=== PATIENT | female | born 1950 | race Two or more races ===

== ENCOUNTER → 2016-09-07 | Outpatient (CLI) | payer MEDICAID ==
[2016-09-07 09:48] LABS: BASO % 0.5 % (0.0-1.0); EOS # 0.5 K/mm3 (0.0-0.50); EOS % 9.1 % (0.0-3.0); LARGE UNSTAINED CELL # 0.2 K/mm3 (0.0-0.4); LARGE UNSTAINED CELL % 3.8 % (0.0-4.0); LYMPH # 1.9 K/mm3 (1.5-4.5); LYMPH % 36.4 % (24.0-44.0); MEAN CORPUSCULAR HEMOGLOBIN 27.7 pg (27.0-33.0); MEAN CORPUSCULAR HGB CONC 33.4 g/dl (32.0-36.5); MEAN CORPUSCULAR VOLUME 82.8 fl (80.0-96.0); MONO # 0.3 K/mm3 (0.0-0.8); NEUTROPHILS # 2.3 K/mm3 (1.8-7.7); NEUTROPHILS % 44.2 % (36.0-66.0); PLATELET COUNT, AUTOMATED 211 k/mm3 (150-450); RED CELL DISTRIBUTION WIDTH 13.4 % (11.5-14.5); WHITE BLOOD COUNT 5.1 K/mm3 (4.0-10.0)
[2016-09-07 10:26] LABS: ALBUMIN 3.6 GM/DL (3.2-5.2); ALBUMIN/GLOBULIN RATIO 1.09 (1.00-1.93); ALKALINE PHOSPHATASE 88 U/L (45-117); ALT/SGPT 18 U/L (12-78); ANION GAP 10 MEQ/L (8-16); AST/SGOT 16 U/L (15-37); BILIRUBIN,TOTAL 0.3 MG/DL (0.2-1.0); BLOOD UREA NITROGEN 15 MG/DL (7-18); CARBON DIOXIDE LEVEL 29 MEQ/L (21-32); CHLORIDE LEVEL 105 MEQ/L (98-107); CHOLESTEROL LEVEL 261 MG/DL (<200); CREATININE FOR GFR 0.87 MG/DL (0.55-1.02); GLOMERULAR FILTRATION RATE > 60.0 (>45); GLUCOSE, FASTING 122 MG/DL (80-110); POTASSIUM SERUM 4.1 MEQ/L (3.5-5.1); SODIUM LEVEL 144 MEQ/L (136-145); TOTAL PROTEIN 6.9 GM/DL (6.4-8.2); TRIGLYCERIDES LEVEL 265 MG/DL (<150)
== END ==
LOC: M LAB 09:13
PROVIDERS: ATTEND Family Medicine Addiction Medicine
DX: I10 Essential (primary) hypertension (principal)

== ENCOUNTER → 2016-09-22 | Outpatient (CLI) | payer MEDICAID ==
--- NOTE | 2016-09-22 10:06 | REP ---
Clinical: Right upper quadrant and generalized abdominal pain. Technique: Tabares scale ultrasound using curved array transducer. Findings: The liver is normal in contour, size, echogenicity without focal hepatic lesion identified. The pancreas is mildly echogenic with a prominent duct measuring up to 3.4 mm diameter. The pancreas is otherwise incompletely evaluated due to interposed bowel gas. The gallbladder demonstrates cholelithiasis without wall thickening or pericholecystic fluid and no biliary ductal dilatation. The common bile duct measures 5.5 mm diameter. No sonographic Trinh's sign was elicited during examination. The right kidney is normal in reniform shape without hydronephrosis and measures 9.7 x 4.4 x 4.2 cm. No ascites. Impression: 1. Cholelithiasis without sonographic evidence for acute cholecystitis. 2. Mildly prominent visualized pancreas and pancreatic duct without obvious abnormality. Signed by Attila Gunter MD 09/22/2016 09:58 A
== END ==
LOC: M RAD 08:26
PROVIDERS: ATTEND Family Medicine Addiction Medicine
DX: K80.80 Other cholelithiasis without obstruction (principal)

== ENCOUNTER → 2016-10-11 | Outpatient (CLI) | payer MEDICAID ==
--- NOTE | 2016-10-11 14:12 | REPMRS ---
Patient History The patient states she has not had a clinical breast exam in over a year. Patient is postmenopausal. No known family history of cancer. Digital Woman Screen Mammo: October 11, 2016 - Exam #: [id number] Bilateral CC and MLO view(s) were taken. Technologist: Ale Quinonesologist FINDINGS: There are scattered fibroglandular densities. There is no evidence of cancer on this mammogram. ASSESSMENT: BI-RADS/ACR category 2 mammogram. Benign finding(s). Recommendation Routine screening mammogram of both breasts in 1 year (for women over age 40). This mammogram was interpreted with the aid of an FDA-approved computer-aided dectection system. Electronically Signed By: Mauricio Tabares MD 10/11/16 [id number]
--- NOTE | 2016-10-11 15:12 | REP ---
PELVIC ULTRASOUND: Real-time sonographic evaluation of the pelvis is performed utilizing transabdominal and endovaginal technique. Bladder measures 5.6 x 9.6 x 4.6 cm. The patient has had a prior hysterectomy and oophorectomy approximately 10 years ago. No mass or cyst is seen. No free fluid is seen. IMPRESSION: Negative pelvic ultrasound, status post hysterectomy and oophorectomy. Signed by Mauricio Tabares MD 10/11/2016 04:27 P
== END ==
LOC: M WHC 13:04
PROVIDERS: ATTEND Advanced Practice Midwife
DX: Z12.31 Encounter for screening mammogram for malignant neoplasm of breast (principal); Z78.0 Asymptomatic menopausal state; R10.30 Lower abdominal pain, unspecified

== ENCOUNTER 2016-11-08 17:57 | Emergency (ER) | payer MEDICAID ==
[~2016-11-08] VITALS: Ht 157.5 cm; Wt 72.6 kg
[2016-11-08 17:57] VITALS: BP 131/64
[~2016-11-08 17:57] MED LIST changes: -BUPIVACAINE/EPIN 0.25% 30 ML VIAL As Ordered ONE; -GLYCOPYRROLATE INJ 0.2 MG/ML 2 ML VIAL As Ordered ONE; -HYDROmorphone HCL 1 MG/ML SYRINGE (J1170) IV PRN; -KETOROLAC 30 MG/ML VIAL (J1885) IV PRN; -LABETALOL HCL 100 MG/20 ML VIAL As Ordered ONE; -LIDOCAINE 2% INJ 100 MG/5 ML SDV (FOR ANES.) As Ordered ONE; -LR 1,000 ML IV ONE; -LR 1,000 ML IV SCH; -MEPERIDINE INJ 25 MG/ML VIAL (J2175) IV PRN; -MIDAZOLAM INJ 2 MG/2 ML VIAL (J2250) As Ordered ONE; -NEOSTIGMINE 1MG/ML 5 ML SYRINGE (J2710) As Ordered ONE; -NORCO, ANEXSIA 5/325MG TABLET (HYDROcodone/ACETAMINOPHEN) PO PRN; -ONDANSETRON 4MG/2ML VIAL (J2405) As Ordered ONE; -ONDANSETRON 4MG/2ML VIAL (J2405) IV PRN; -PERCOCET 5MG/325MG TAB PO PRN; -PROPOFOL 200 MG/20 ML VIAL As Ordered ONE; -ROCURONIUM BROMIDE 50 MG/5 ML VIAL As Ordered ONE; -SUGAMMADEX SODIUM 500 MG/5 ML VIAL (BRIDION) As Ordered ONE; -dexameTHASONE 4 MG/ML 1ML VIAL (J1100) As Ordered ONE; -fentaNYL 100 MCG/2 ML INJECTION (J3010) IV PRN; -fentaNYL 250 MCG/5 ML INJECTION (J3010) As Ordered ONE
== END 2016-11-08 19:45 | disposition home or self-care (01) ==
LOC: M ED 18:48
DX: Z48.00 Encounter for change or removal of nonsurgical wound dressing (principal); Z90.49 Acquired absence of other specified parts of digestive tract; I10 Essential (primary) hypertension; Z79.899 Other long term (current) drug therapy

== ENCOUNTER → 2016-11-08 | Day surgery (SDC) | payer MEDICAID ==
[~2016-11-08] VITALS: Ht 160 cm; Wt 72.6 kg
[~2016-11-08] MED LIST: BUPIVACAINE/EPIN 0.25% 30 ML VIAL As Ordered ONE; GLYCOPYRROLATE INJ 0.2 MG/ML 2 ML VIAL As Ordered ONE; HYDROmorphone HCL 1 MG/ML SYRINGE (J1170) IV PRN; KETOROLAC 30 MG/ML VIAL (J1885) IV PRN; LABETALOL HCL 100 MG/20 ML VIAL As Ordered ONE; LIDOCAINE 2% INJ 100 MG/5 ML SDV (FOR ANES.) As Ordered ONE; LISI20TA3 PO; LR 1,000 ML IV ONE; LR 1,000 ML IV SCH; MEPERIDINE INJ 25 MG/ML VIAL (J2175) IV PRN; MIDAZOLAM INJ 2 MG/2 ML VIAL (J2250) As Ordered ONE; NEOSTIGMINE 1MG/ML 5 ML SYRINGE (J2710) As Ordered ONE; NORCO, ANEXSIA 5/325MG TABLET (HYDROcodone/ACETAMINOPHEN) PO PRN; OMEP20CA3 PO; ONDANSETRON 4MG/2ML VIAL (J2405) As Ordered ONE; ONDANSETRON 4MG/2ML VIAL (J2405) IV PRN; PERCOCET 5MG/325MG TAB PO PRN; PROPOFOL 200 MG/20 ML VIAL As Ordered ONE; ROCURONIUM BROMIDE 50 MG/5 ML VIAL As Ordered ONE; SUGAMMADEX SODIUM 500 MG/5 ML VIAL (BRIDION) As Ordered ONE; dexameTHASONE 4 MG/ML 1ML VIAL (J1100) As Ordered ONE; fentaNYL 100 MCG/2 ML INJECTION (J3010) IV PRN; fentaNYL 250 MCG/5 ML INJECTION (J3010) As Ordered ONE
[2016-11-08 14:00] VITALS: BP 108/55
--- NOTE | 2016-11-09 12:34 | RO ---
DATE OF PROCEDURE: 11/08/2016 PREOPERATIVE DIAGNOSIS: Symptomatic cholelithiasis. POSTOPERATIVE DIAGNOSIS: Symptomatic cholelithiasis. PROCEDURE: Laparoscopic cholecystectomy. SURGEON: Dr. Quijano ROLLED GOLD PLATER: Dr. Valentin ANESTHESIA: General with 10 mL of 1% lidocaine local. COMPLICATIONS: None. INDICATIONS FOR PROCEDURE: The patient is a 65-year-old female who presents with persistent right upper quadrant abdominal pain, found to have stones on ultrasound. Recommendation to proceed with laparoscopic, possible open cholecystectomy. Risks and benefits of the procedure not limited but including bleeding, infection, hernia formation, damage surrounding structure, need for further surgery were discussed in detail with the patient. Informed was obtained. Procedure was planned. DESCRIPTION OF PROCEDURE: Patient brought back to operating room #3. After sufficient sedation, the abdomen was sterilely prepped and draped. Next, a time-out was done to confirm proper patient, proper procedure. Following that, a stab incision made in left lower quadrant, Heath's point. Veress needle was inserted and the abdomen was insufflated 50 mmHg. Next, a 5 mm incision was made infraumbilically. A 5 mm Optiview port was used to gain access to the abdomen. Once the abdomen was entered, Veress needle site was examined. There were no signs of injury. Veress needle was then removed. A 10 mm port was placed subxiphoid. Two 5 mm ports in the right upper quadrant. Fundus of gallbladder was grasped, elevated up towards right shoulder. Cystic duct and cystic artery were carefully dissected free using blunt dissection. Once they were completely free and easily identified, they were both doubly clipped and cut. Gallbladder was then removed from gallbladder fossa using electrocautery. The electrocautery was then used to control hemostasis at the liver bed. Once this was completed, the gallbladder was removed in a 10 mm EndoCatch bag from the xiphoid port site. Abdomen was then desufflated. Skin incisions were closed #4-0 Vicryl subcuticular sutures. The abdomen was clean and dry. Steri-Strips, 4 x 4 and tape were applied, thus ending procedure.
--- NOTE | 2016-11-09 19:52 | ECGEPIP ---
Stationary ECG Study [facility] Test Date: 2016-11-08 Pat Name: BARBER SOFIA Department: Room: - Gender: F Regional Driver: LEO : [id number] Requested By: KATHY Bullock Order Number: [id number] Reading MD: Charity Castillo Measurements Intervals [place] Rate: 66 P: 25 WA: 174 QRS: -31 QRSD: 92 T: 1 QT: 423 QTc: 444 Interpretive Statements SINUS RHYTHM MARKED LEFT AXIS DEVIATION MODERATE VOLTAGE CRITERIA FOR LVH, CONSIDER NORMAL VARIANT NO PRIOR Electronically Signed On 11-09-2016 19:52:02 EDT by Charity Castillo
== END | disposition home or self-care (01) ==
LOC: M SDC 08:32 → MERGE 10:15
PROVIDERS: ATTEND Surgery
DX: K80.10 Calculus of gallbladder with chronic cholecystitis without obstruction (principal); I10 Essential (primary) hypertension; K21.9 Gastro-esophageal reflux disease without esophagitis; Z79.899 Other long term (current) drug therapy; Z90.710 Acquired absence of both cervix and uterus; Z96.653 Presence of artificial knee joint, bilateral
CPT/HCPCS: 47562; 88304; 93005; J0690; J1100; J2250; J2405; J3010

== ENCOUNTER → 2017-04-10 | Outpatient (CLI) | payer OTHER ==
[2017-04-10 12:47] LABS: MEAN CORPUSCULAR HEMOGLOBIN 28.7 pg (27.0-33.0); MEAN CORPUSCULAR HGB CONC 34.3 g/dl (32.0-36.5); MEAN CORPUSCULAR VOLUME 83.7 fl (80.0-96.0); RED CELL DISTRIBUTION WIDTH 14.1 % (11.5-14.5); WHITE BLOOD COUNT 5.1 10^3/uL (4.0-10.0)
[2017-04-10 13:51] LABS: FOLATE 11.9 NG/ML (>5.4); VITAMIN B12 LEVEL 323 PG/ML (247-911)
[2017-04-10 13:57] LABS: ALBUMIN 3.8 GM/DL (3.2-5.2); ALBUMIN/GLOBULIN RATIO 1.19 (1.00-1.93); ALKALINE PHOSPHATASE 76 U/L (45-117); ALT/SGPT 22 U/L (12-78); ANION GAP 7 MEQ/L (8-16); AST/SGOT 16 U/L (15-37); BILIRUBIN,TOTAL 0.5 MG/DL (0.2-1.0); BLOOD UREA NITROGEN 15 MG/DL (7-18); CALCIUM LEVEL 9.4 MG/DL (8.8-10.2); CARBON DIOXIDE LEVEL 27 MEQ/L (21-32); CHLORIDE LEVEL 104 MEQ/L (98-107); CHOLESTEROL LEVEL 259 MG/DL (<200); CREATININE FOR GFR 0.78 MG/DL (0.55-1.02); GLOMERULAR FILTRATION RATE > 60.0 (>45); GLUCOSE, FASTING 109 MG/DL (80-110); PERCENT SATURATION 25.1 % (13.2-45.0); POTASSIUM SERUM 4.2 MEQ/L (3.5-5.1); SODIUM LEVEL 138 MEQ/L (136-145); TOTAL IRON BINDING CAPACITY 414 UG/DL (250-450); TRIGLYCERIDES LEVEL 341 MG/DL (<150)
== END ==
LOC: M LAB 12:10
PROVIDERS: ATTEND Family Medicine
DX: D64.9 Anemia, unspecified (principal)

== ENCOUNTER → 2017-11-20 | Outpatient (CLI) | payer OTHER ==
[2017-11-20 12:29] LABS: HEMATOCRIT 40.7 % (36.0-47.0); HEMOGLOBIN 13.8 g/dl (12.0-15.5); MEAN CORPUSCULAR HEMOGLOBIN 28.8 pg (27.0-33.0); MEAN CORPUSCULAR HGB CONC 33.9 g/dl (32.0-36.5); MEAN CORPUSCULAR VOLUME 84.8 fl (80.0-96.0); PLATELET COUNT, AUTOMATED 229 10^3/uL (150-450); RED CELL DISTRIBUTION WIDTH 13.2 % (11.5-14.5); WHITE BLOOD COUNT 5.5 10^3/uL (4.0-10.0)
[2017-11-20 13:13] LABS: TOTAL 25(OH) VITAMIN D 43.4 NG/ML (30.0-100.0)
[2017-11-20 13:21] LABS: ALBUMIN/GLOBULIN RATIO 1.05 (1.00-1.93); ALKALINE PHOSPHATASE 85 U/L (45-117); ALT/SGPT 25 U/L (12-78); ANION GAP 4 MEQ/L (8-16); AST/SGOT 22 U/L (7-37); BILIRUBIN,TOTAL 0.5 MG/DL (0.2-1.0); BLOOD UREA NITROGEN 14 MG/DL (7-18); CALCIUM LEVEL 9.1 MG/DL (8.8-10.2); CARBON DIOXIDE LEVEL 28 MEQ/L (21-32); CHLORIDE LEVEL 107 MEQ/L (98-107); CHOLESTEROL LEVEL 220 MG/DL (<200); CHOLESTEROL RISK RATIO 5.641 (<5); CREATININE FOR GFR 0.83 MG/DL (0.55-1.30); GLOMERULAR FILTRATION RATE > 60.0 (>45); GLUCOSE, FASTING 102 MG/DL (70-100); HDL CHOLESTEROL 39 MG/DL (>40); LDL CHOLESTEROL 126.6 MG/DL (<100); NON-HDL-C 181 MG/DL; POTASSIUM SERUM 4.8 MEQ/L (3.5-5.1); SODIUM LEVEL 139 MEQ/L (136-145); TOTAL PROTEIN 7.8 GM/DL (6.4-8.2); TRIGLYCERIDES LEVEL 272 MG/DL (<150)
[2017-11-20 13:56] LABS: ESTIMATED AVERAGE GLUCOSE 137 MG/DL (60-110); HEMOGLOBIN A1c 6.4 %
== END ==
LOC: M LAB 11:55
DX: R53.83 Other fatigue (principal); I10 Essential (primary) hypertension; E11.9 Type 2 diabetes mellitus without complications
CPT/HCPCS: 84443

== ENCOUNTER → 2019-01-17 | Outpatient (CLI) | payer OTHER ==
[~2019-01-17] MED LIST changes: -OMEP20CA3 PO; +OMEP20CA4 PO
--- NOTE | 2019-01-20 05:37 | REP ---
Clinical: Sciatica. Technique: AP and frog lateral views of the left hip. Findings: Osseous structures are intact. Mild age-related changes are noted including very subtle joint space narrowing with very minimal sclerosis to the acetabular roof. No subchondral cystic changes, osteophytosis, or chondrocalcinosis is appreciated. Impression: Essentially age-appropriate left hip radiographs. Electronically Signed by Attila Gunter MD 01/20/2019 05:29 A
--- NOTE | 2019-01-20 05:40 | REP ---
Clinical: Sciatica. Technique: Single AP view of the pelvis. Comparison: None. Findings: Osseous structures appear relatively normal for age. A sclerotic area overlying the right iliac bone is nonspecific and may represent bony lesion or superimposed partially calcified structure in the right lower quadrant. Remainder examination is essentially normal. Impression: 1. Essentially normal appearance to the pelvis. 2. Sclerotic area overlying the right iliac bone of uncertain etiology or significance. Consider follow-up examination in [id number] weeks, and for structure remains unchanged CT may be warranted unless prior examinations are made available for comparison to determine stability. Electronically Signed by Attila Gunter MD 01/20/2019 05:32 A
--- NOTE | 2019-01-20 05:43 | REP ---
Clinical: Back and knee pain. Technique: AP, lateral, bilateral oblique and sunrise views of the left knee. Findings: Evidence of prior replacement with essentially normal appearance to the orthopedic hardware. Mild degenerative changes are appreciated along with possible calcified loose bodies within the joint space and involving the patellar tendon. No acute fracture dislocation. No effusion. Impression: Mild arthritic changes. Electronically Signed by Attila Gunter MD 01/20/2019 05:34 A
--- NOTE | 2019-01-20 05:46 | REP ---
Clinical: Sciatica. Technique: AP, lateral, bilateral oblique and coned-down views of the lumbosacral spine. Findings: Alignment and lordosis maintained. Moderate multilevel degenerative changes include endplate sclerosis/heterogeneity, osteophyte formation, joint space narrowing, and hypertrophic facet changes. Findings most pronounced at L3-4. Subtle old compression deformity involving L4 with minimal loss of anterior superior vertebral body height cannot be excluded. No acute fracture / compression injury or subluxation. Impression: 1. Moderate multilevel degenerative spondylosis. 2. Possible old mild compression fracture involving L4. Electronically Signed by Attila Gunter MD 01/20/2019 05:37 A
== END ==
LOC: M RAD 16:42
PROVIDERS: ATTEND Family Medicine
DX: E11.9 Type 2 diabetes mellitus without complications (principal); M54.32 Sciatica, left side; M17.12 Unilateral primary osteoarthritis, left knee

== ENCOUNTER → 2019-03-28 | Outpatient (CLI) | payer OTHER ==
[~2019-03-28] MED LIST changes: +LISI20TA20 PO; -LISI20TA3 PO
[2019-03-28 09:12] LABS: HEMOGLOBIN A1c 6.2 %
[2019-03-28 09:23] LABS: THYROID STIMULATING HORMONE 2.64 uIU/ML (0.358-3.740)
[2019-03-28 10:55] LABS: TOTAL 25(OH) VITAMIN D 45.7 NG/ML (30.0-100.0)
== END ==
LOC: M LAB 08:08
PROVIDERS: ATTEND Family Medicine
DX: R53.83 Other fatigue (principal)

== ENCOUNTER → 2019-07-14 | Outpatient (CLI) | payer OTHER ==
[~2019-07-14] MED LIST changes: +OMEP1CAP73 PO; -OMEP20CA4 PO
[2019-07-14 12:40] LABS: HEMATOCRIT 38.5 % (36.0-47.0); MEAN CORPUSCULAR HGB CONC 33.8 g/dl (32.0-36.5); MEAN CORPUSCULAR VOLUME 85.9 fl (80.0-96.0); PLATELET COUNT, AUTOMATED 211 10^3/uL (150-450); RED BLOOD COUNT 4.48 10^6/uL (4.00-5.40); WHITE BLOOD COUNT 5.5 10^3/uL (4.0-10.0)
[2019-07-14 13:06] LABS: RHEUMATOID FACTOR QUANT < 10.0 IU/ML (<15.0); URIC ACID 5.3 MG/DL (2.6-6.0)
[2019-07-14 13:25] LABS: ERYTHROCYTE SEDIMENTATION RATE 13 mm/hr (0-30)
[2019-07-15 14:07] LABS: Lyme Disease IgG/IgM Antibodie <0.91 ISR (0.00-0.90); Lyme Disease IgM Ab Quantitati <0.80 index (0.00-0.79)
== END ==
LOC: M LAB 11:42
PROVIDERS: ATTEND Family Medicine
DX: M06.9 Rheumatoid arthritis, unspecified (principal); R53.83 Other fatigue

== ENCOUNTER → 2019-09-10 | Outpatient (CLI) | payer OTHER ==
[2019-09-10 14:38] LABS: C REACTIVE PROTEIN QUANTITATIV < 0.30 MG/DL (0.00-0.30); RHEUMATOID FACTOR QUANT < 10.0 IU/ML (<15.0)
--- NOTE | 2019-09-10 15:52 | REPVR ---
PROCEDURE INFORMATION: Exam: MR Lumbar Spine Without Contrast. Exam date and time: 09/10/2019 2:17 PM Age: 68 years old Clinical indication: Low back pain; Additional info: Lumbar pain TECHNIQUE: Imaging protocol: Multiplanar magnetic resonance images of the lumbar spine without intravenous contrast. COMPARISON: CR Spine. Lumbosacral, complete 01/17/2019 5:03 PM FINDINGS: Vertebrae: Straightening of the normal lumbar lordosis. No acute fracture in the lumbar spine. Diffuse degenerative facet arthropathy. Spinal cord: Conus medullaris is normal appearance at the L1 level. L1-L2: No significant disc disease. No significant spinal canal stenosis. No neural foraminal stenosis. L2-L3: No significant disc disease. No significant spinal canal stenosis. No neural foraminal stenosis. L3-L4: Disc space narrowing and endplate degeneration together with degenerated apposed facet joints results in moderate spinal canal stenosis and narrowing of the lateral recesses right greater than left which may affect the exiting L4 nerve roots. There is also narrowing of the right neural foramen which may affect the right L3 nerve root. . L4-L5: Diffusely bulging annulus narrows both neural foramen and results in moderate to severe spinal canal stenosis in combination with ligamentum flavum hypertrophy. There is compression of both exiting L5 nerve roots. The neural foramen appear patent. L5-S1: No significant disc disease. No significant spinal canal stenosis. No neural foraminal stenosis. There is a synovial cyst emanating from the posterior margin of the right facet joint along the spinous process which is likely clinically insignificant. Soft tissues: Unremarkable. IMPRESSION: There is moderate to severe spinal canal stenosis at the L4-L5 level with probable compression of both exiting L5 nerve roots. There may be neural compromise at the L3-L4 level as described. Electronically signed by: Diana Trejo On 09/10/2019 15:52:16 PM
--- NOTE | 2019-09-10 18:56 | REP ---
Right hand four views: There is mild joint space narrowing of the PIP and DIP articulations of the middle finger MCP articulation compatible with articular cartilage atrophy and nonspecific arthropathy. Mineralization is normal. No calcifications. No fracture or dislocation. Impression: Nonspecific arthropathy. Left hand four views: There is minimal joint space narrowing of the DIP and PIP articulations compatible with cartilaginous atrophy and nonspecific arthropathy, likely osteoarthritis. There is osteoarthritis at the thumb trapezial metacarpal articulation. Impression: Non specific arthropathy of the second through fifth digits. Osteoarthritis of the thumb base. Electronically Signed by Mauricio Wylie MD 09/10/2019 06:47 P
== END ==
LOC: M RAD 12:39
PROVIDERS: ATTEND Internal Medicine
DX: M25.50 Pain in unspecified joint (principal); M54.5 Low back pain

== ENCOUNTER → 2020-06-19 | Outpatient (CLI) | payer OTHER ==
[2020-06-19 10:01] LABS: HEMATOCRIT 38.2 % (36.0-47.0); HEMOGLOBIN 12.4 g/dl (12.0-15.5); MEAN CORPUSCULAR HEMOGLOBIN 28.4 pg (27.0-33.0); MEAN CORPUSCULAR HGB CONC 32.5 g/dl (32.0-36.5); MEAN CORPUSCULAR VOLUME 87.6 fl (80.0-96.0); PLATELET COUNT, AUTOMATED 222 10^3/uL (150-450); RED BLOOD COUNT 4.36 10^6/uL (4.00-5.40); WHITE BLOOD COUNT 5.6 10^3/uL (4.0-10.0)
[2020-06-19 10:31] LABS: ALBUMIN 3.6 GM/DL (3.2-5.2); ALT/SGPT 25 U/L (12-78); BILIRUBIN,TOTAL 0.3 MG/DL (0.2-1.0); BLOOD UREA NITROGEN 11 MG/DL (7-18); CALCIUM LEVEL 9.1 MG/DL (8.8-10.2); CARBON DIOXIDE LEVEL 30 MEQ/L (21-32); CHLORIDE LEVEL 106 MEQ/L (98-107); CHOLESTEROL LEVEL 215 MG/DL (<200); CHOLESTEROL RISK RATIO 5.657 (<5); CREATININE FOR GFR 0.84 MG/DL (0.55-1.30); GLOMERULAR FILTRATION RATE > 60.0 (>39); GLUCOSE, FASTING 107 MG/DL (70-100); HDL CHOLESTEROL 38 MG/DL (>40); LDL CHOLESTEROL 136 MG/DL (<100); NON-HDL-C 177 MG/DL; POTASSIUM SERUM 4.5 MEQ/L (3.5-5.1); SODIUM LEVEL 141 MEQ/L (136-145); TOTAL PROTEIN 6.9 GM/DL (6.4-8.2); TRIGLYCERIDES LEVEL 206 MG/DL (<150)
[2020-06-19 11:11] LABS: HEMOGLOBIN A1c 6.3 %
[2020-06-21 13:25] LABS: TOTAL 25(OH) VITAMIN D 54.1 NG/ML (30.0-100.0)
== END ==
LOC: M LAB 08:27
PROVIDERS: ATTEND Family Medicine
DX: E03.9 Hypothyroidism, unspecified (principal); D64.9 Anemia, unspecified

== ENCOUNTER → 2020-12-29 | Outpatient (CLI) | payer OTHER ==
[~2020-12-29] MED LIST changes: +E-Z-GAS II EFFERVESCENT PACKET (SODIUM BICARB./CITRIC ACID/SIMETHICONE) As Ordered ONE; +E-Z-HD 98% w/w 340GM SUSP BTL As Ordered ONE; +E-Z-PAQUE 96% w/w SUSP 176GM BTL As Ordered ONE
--- NOTE | 2020-12-29 17:04 | REP ---
INDICATION: EPIGASTRIC PAIN/PEPTIC ULCER. COMPARISON: None. TECHNIQUE: The procedure was performed under the direct supervision of Dr. Dominguez. The images were reviewed with Dr. Dominguez. Liquid barium was given in the erect position as well as liquid barium in the prone oblique position in order to perform a single contrast upper GI examination. A combination of fluoroscopy, spot films and last image hold technology was utilized. 1.8 minutes of fluoro time was utilized for this procedure. FINDINGS: The airline radio operator film shows no organomegaly or pathological masses. The intestinal gas pattern is non-specific. There are surgical clips noted in the right upper quadrant. There is a giant bone island in the left pelvis. This is unchanged compared to a previous exam performed on 01/17/2018. The oral and pharyngeal stages of deglutition are unremarkable. Esophageal transport is prompt and efficient and there is no esophagitis, stricture, mucosal ring or hiatal hernia. Gastroesophageal reflux is not demonstrated on this examination. The stomach herbert are normally outlined. The rugal folds are smooth and regular. There is no gastritis neoplasm or ulcer disease. The duodenal herbert are normally outlined. The mucosal folds are smooth and regular. There is no duodenitis pancreatitis peptic ulcer disease or neoplasm. The visualized portion of the proximal small bowel appears normal in course and caliber. IMPRESSION: Single-contrast upper GI within normal limits. <Electronically signed by Alejo Leavitt > 12/29/20 1656 <Electronically signed by Marito Dominguez > 12/29/20 1701
== END ==
LOC: M RAD 08:34
PROVIDERS: ATTEND Family Medicine
DX: R10.13 Epigastric pain (principal)

== ENCOUNTER → 2021-06-28 | Outpatient (CLI) | payer OTHER ==
[~2021-06-28] MED LIST changes: -E-Z-GAS II EFFERVESCENT PACKET (SODIUM BICARB./CITRIC ACID/SIMETHICONE) As Ordered ONE; -E-Z-HD 98% w/w 340GM SUSP BTL As Ordered ONE; -E-Z-PAQUE 96% w/w SUSP 176GM BTL As Ordered ONE; -LISI20TA20 PO; +LISI20TA37 PO
[2021-06-28 12:44] LABS: HEMATOCRIT 40.2 % (36.0-47.0); HEMOGLOBIN 13.6 g/dl (12.0-15.5); MEAN CORPUSCULAR HEMOGLOBIN 28.9 pg (27.0-33.0); MEAN CORPUSCULAR HGB CONC 33.8 g/dl (32.0-36.5); MEAN CORPUSCULAR VOLUME 85.4 fl (80.0-96.0); PLATELET COUNT, AUTOMATED 203 10^3/uL (150-450); RED BLOOD COUNT 4.71 10^6/uL (4.00-5.40); WHITE BLOOD COUNT 4.8 10^3/uL (4.0-10.0)
[2021-06-28 13:09] LABS: HEMOGLOBIN A1c 6.2 %
[2021-06-28 13:24] LABS: ALBUMIN 4.1 GM/DL (3.2-5.2); ALT/SGPT 31 U/L (12-78); BILIRUBIN,TOTAL 0.4 MG/DL (0.2-1.0); BLOOD UREA NITROGEN 10 MG/DL (7-18); CALCIUM LEVEL 9.8 MG/DL (8.8-10.2); CARBON DIOXIDE LEVEL 28 MEQ/L (21-32); CHLORIDE LEVEL 108 MEQ/L (98-107); CHOLESTEROL LEVEL 231 MG/DL (<200); CHOLESTEROL RISK RATIO 5.775 (<5); CREATININE FOR GFR 0.92 MG/DL (0.55-1.30); GLOMERULAR FILTRATION RATE > 60.0 (>39); GLUCOSE, FASTING 107 MG/DL (70-100); HDL CHOLESTEROL 40 MG/DL (>40); LDL CHOLESTEROL 139 MG/DL (<100); NON-HDL-C 191 MG/DL; POTASSIUM SERUM 4.4 MEQ/L (3.5-5.1); SODIUM LEVEL 142 MEQ/L (136-145); TOTAL PROTEIN 7.4 GM/DL (6.4-8.2); TRIGLYCERIDES LEVEL 258 MG/DL (<150)
[2021-06-28 13:25] LABS: TOTAL 25(OH) VITAMIN D 55.4 NG/ML (30.0-100.0)
== END ==
LOC: M LAB 12:02
PROVIDERS: ATTEND Family Medicine
DX: D64.9 Anemia, unspecified (principal); R53.83 Other fatigue

== ENCOUNTER → 2021-12-09 | Outpatient (CLI) | payer OTHER ==
[2021-12-09 10:03] LABS: MEAN CORPUSCULAR HEMOGLOBIN 29.7 pg (27.0-33.0); MEAN CORPUSCULAR HGB CONC 34.1 g/dl (32.0-36.5); PLATELET COUNT, AUTOMATED 223 10^3/uL (150-450); RED BLOOD COUNT 4.71 10^6/uL (4.00-5.40); WHITE BLOOD COUNT 5.8 10^3/uL (4.0-10.0)
[2021-12-09 12:15] LABS: ALBUMIN 3.9 GM/DL (3.2-5.2); ALT/SGPT 27 U/L (12-78); BILIRUBIN,TOTAL 0.4 MG/DL (0.2-1.0); BLOOD UREA NITROGEN 14 MG/DL (7-18); CALCIUM LEVEL 9.5 MG/DL (8.8-10.2); CARBON DIOXIDE LEVEL 24 MEQ/L (21-32); CHLORIDE LEVEL 108 MEQ/L (98-107); CHOLESTEROL LEVEL 200 MG/DL (<200); CHOLESTEROL RISK RATIO 4.761 (<5); CREATININE FOR GFR 0.89 MG/DL (0.55-1.30); GLOMERULAR FILTRATION RATE > 60.0 (>39); GLUCOSE, FASTING 109 MG/DL (70-100); HDL CHOLESTEROL 42 MG/DL (>40); LDL CHOLESTEROL 111 MG/DL (<100); NON-HDL-C 158 MG/DL; POTASSIUM SERUM 4.9 MEQ/L (3.5-5.1); SODIUM LEVEL 138 MEQ/L (136-145); TOTAL 25(OH) VITAMIN D 61.3 NG/ML (30.0-100.0); TOTAL PROTEIN 7.9 GM/DL (6.4-8.2); TRIGLYCERIDES LEVEL 237 MG/DL (<150)
[2021-12-09 15:16] LABS: HEMOGLOBIN A1c 6.1 %
== END ==
LOC: M LAB 09:25
PROVIDERS: ATTEND Family Medicine
DX: I10 Essential (primary) hypertension (principal); D64.9 Anemia, unspecified; R53.83 Other fatigue

== ENCOUNTER 2022-06-10 17:39 | Observation (INO) | payer OTHER ==
[~2022-06-10] VITALS: Ht 162.6 cm; Wt 75.0 kg
[2022-06-10] MEDS ORDERED: ISOVUE-370 76% 100ML VIAL As Ordered ONE (17:52)
[2022-06-10] MEDS ORDERED: ONDANSETRON 4MG 2ML VIAL As Ordered ONE (18:03)
[2022-06-10] MEDS ORDERED: LABETALOL 100MG/20ML VIAL IV PRN (18:05)
[2022-06-10] MEDS ORDERED: ONDANSETRON 4MG 2ML VIAL IV ONE (18:05)
[2022-06-10 18:36] LABS: BASO # 0.1 10^3/uL (0.0-0.2); BASO % 0.8 % (0.0-1.0); EOS # 0.5 10^3/uL (0.0-0.5); EOS % 7.2 % (0.0-3.0); HEMATOCRIT 36.9 % (36.0-47.0); HEMOGLOBIN 12.6 g/dl (12.0-15.5); LYMPH # 2.6 10^3/uL (1.5-5.0); MEAN CORPUSCULAR HEMOGLOBIN 28.5 pg (27.0-33.0); MEAN CORPUSCULAR HGB CONC 34.1 g/dl (32.0-36.5); MEAN CORPUSCULAR VOLUME 83.5 fl (80.0-96.0); MONO # 0.7 10^3/uL (0.0-0.8); MONO % 9.4 % (2.0-8.0); NEUTROPHILS # 3.7 10^3/uL (1.5-8.5); NEUTROPHILS % 48.3 % (36.0-66.0); PLATELET COUNT, AUTOMATED 214 10^3/uL (150-450); RED BLOOD COUNT 4.42 10^6/uL (4.00-5.40); WHITE BLOOD COUNT 7.5 10^3/uL (4.0-10.0)
[2022-06-10] MEDS ORDERED: ACETAMINOPHEN 500 MG TAB PO ONE (18:40)
[2022-06-10] MEDS ORDERED: ASPIRIN 81MG CHEW TABLET PO ONE (18:50)
[2022-06-10 18:51] LABS: INR 0.93; PROTHROMBIN TIME 12.7 SECONDS (12.5-14.5)
[2022-06-10 18:53] LABS: CPK CREATINE PHOSPHOKINASE 228 U/L (34-145); MB/CK RELATIVE INDEX 0.87 (< OR =4)
[2022-06-10 18:57] LABS: LIPASE 43 U/L (12-53)
[2022-06-10 18:59] LABS: ALBUMIN 3.9 G/DL (3.2-5.2); ALKALINE PHOSPHATASE 67 U/L (46-116); ALT/SGPT 25 U/L (7.0-40); AST/SGOT 24 U/L (<34); BILIRUBIN,DIRECT < 0.1 MG/DL (<0.4); BILIRUBIN,TOTAL 0.3 MG/DL (0.3-1.2); BLOOD UREA NITROGEN 16 MG/DL (9-23); CALCIUM LEVEL 8.8 MG/DL (8.3-10.6); CARBON DIOXIDE LEVEL 22 MMOL/L (20-31); CHLORIDE LEVEL 96 MMOL/L (98-107); CREATININE FOR GFR 0.69 MG/DL (0.55-1.30); GLOMERULAR FILTRATION RATE > 60.0 (>39); GLUCOSE, FASTING 127 MG/DL (74-106); POTASSIUM SERUM 3.9 MMOL/L (3.5-5.1); SODIUM LEVEL 129 MMOL/L (136-145); TOTAL PROTEIN 6.7 G/DL (5.7-8.2)
[2022-06-10 19:01] LABS: FREE T4 1.22 NG/DL (0.89-1.76)
[2022-06-10] MEDS ORDERED: NS 500 ML IV ONE (20:00)
[2022-06-10 20:31] LABS: CK-MB VALUE MASS 1.5 NG/ML (<3.6)
[2022-06-10 20:37] LABS: MB/CK RELATIVE INDEX 0.64 (< OR =4)
[2022-06-10 21:52] LABS: OSMOLALITY SERUM 265 MOSM/KG (280-301)
[2022-06-10 22:24] LABS: CK-MB VALUE MASS 1.4 NG/ML (<3.6)
[2022-06-10 22:32] LABS: RSV AMPLIFICATION NEGATIVE (NEGATIVE)
[2022-06-10 22:34] LABS: MB/CK RELATIVE INDEX 0.69 (< OR =4)
[2022-06-10] MEDS ORDERED: PRAV40TA2 PO (22:37)
[2022-06-10] MEDS ORDERED: ERGO500029 PO (22:37)
[2022-06-10] MEDS ORDERED: PANT40TA29 PO (22:37)
[2022-06-10] MEDS ORDERED: LISI20TA33 PO (22:37)
[2022-06-10] MEDS ORDERED: ASPI81TA26 PO (22:51)
[2022-06-10] MEDS ORDERED: HOME MED LIST COMPLETE! XX SCH (22:55)
[2022-06-11 00:23] LABS: CREATININE,RANDOM URINE 28.2 MG/DL
[2022-06-11] MEDS ORDERED: VIAL MATE ADAPTER XX ONE (01:24)
[2022-06-11] MEDS: AZITHROMYCIN INJ 500 MG, VIAL MATE ADAPTER 1 EACH in NS 250 ML IV SCH (01:35)
[2022-06-11] MEDS: HEPARIN SOD (PORCINE) 5000UNITS/ML 1ML VIAL/SYRINGE SC SCH ×3 (06:06→21:17)
[2022-06-11] MEDS: ACETAMINOPHEN TAB 650MG DOSE (2X325MG) PO PRN ×2 (06:43→17:59)
[2022-06-11 07:30] LABS: BLOOD UREA NITROGEN 10 MG/DL (9-23); CALCIUM LEVEL 8.9 MG/DL (8.3-10.6); CARBON DIOXIDE LEVEL 23 MMOL/L (20-31); CHLORIDE LEVEL 104 MMOL/L (98-107); CREATININE FOR GFR 0.64 MG/DL (0.55-1.30); GLOMERULAR FILTRATION RATE > 60.0 (>39); GLUCOSE, FASTING 101 MG/DL (74-106); SODIUM LEVEL 136 MMOL/L (136-145)
[2022-06-11] MEDS: ASPIRIN 81MG ENTERIC TABLET PO SCH (09:06)
[2022-06-11] MEDS: PRAVASTATIN 20 MG TAB PO SCH (09:06)
[2022-06-11] MEDS: PANTOPRAZOLE 40MG TAB (PROTONIX) PO SCH (09:07)
[2022-06-11 11:48] LABS: BLOOD UREA NITROGEN 11 MG/DL (9-23); CARBON DIOXIDE LEVEL 26 MMOL/L (20-31); CHLORIDE LEVEL 104 MMOL/L (98-107); CREATININE FOR GFR 0.67 MG/DL (0.55-1.30); GLOMERULAR FILTRATION RATE > 60.0 (>39); GLUCOSE, FASTING 122 MG/DL (74-106); POTASSIUM SERUM 4.2 MMOL/L (3.5-5.1); SODIUM LEVEL 137 MMOL/L (136-145)
[2022-06-11 14:15] VITALS: BP 132/62
[2022-06-11 17:41] LABS: BLOOD UREA NITROGEN 12 MG/DL (9-23); CALCIUM LEVEL 8.8 MG/DL (8.3-10.6); CARBON DIOXIDE LEVEL 22 MMOL/L (20-31); CHLORIDE LEVEL 105 MMOL/L (98-107); CREATININE FOR GFR 0.68 MG/DL (0.55-1.30); GLOMERULAR FILTRATION RATE > 60.0 (>39); GLUCOSE, FASTING 171 MG/DL (74-106); POTASSIUM SERUM 4.2 MMOL/L (3.5-5.1); SODIUM LEVEL 138 MMOL/L (136-145)
[2022-06-11 17:50] VITALS: BP 128/62
[2022-06-11] MEDS ORDERED: AZIT-12 PO (19:19)
[2022-06-11] MEDS ORDERED: LISI10TA22 PO (19:19)
[2022-06-11] MEDS ORDERED: AMLO1TAB25 PO (19:19)
[2022-06-11] MEDS ORDERED: SELF1KIT MC (19:21)
[2022-06-11 21:10] VITALS: BP 124/64
[2022-06-11 23:36] LABS: BLOOD UREA NITROGEN 12 MG/DL (9-23); CALCIUM LEVEL 8.6 MG/DL (8.3-10.6); CARBON DIOXIDE LEVEL 20 MMOL/L (20-31); CHLORIDE LEVEL 105 MMOL/L (98-107); CREATININE FOR GFR 0.68 MG/DL (0.55-1.30); GLOMERULAR FILTRATION RATE > 60.0 (>39); GLUCOSE, FASTING 150 MG/DL (74-106); POTASSIUM SERUM 4.1 MMOL/L (3.5-5.1); SODIUM LEVEL 137 MMOL/L (136-145)
[2022-06-12] MEDS: AZITHROMYCIN INJ 500 MG, VIAL MATE ADAPTER 1 EACH in NS 250 ML IV SCH (00:35)
[2022-06-12 04:50] VITALS: BP 125/61
[2022-06-12] MEDS: HEPARIN SOD (PORCINE) 5000UNITS/ML 1ML VIAL/SYRINGE SC SCH (06:27)
[2022-06-12] MEDS: ASPIRIN 81MG ENTERIC TABLET PO SCH (10:34)
[2022-06-12] MEDS: PANTOPRAZOLE 40MG TAB (PROTONIX) PO SCH (10:34)
[2022-06-12 10:35] VITALS: BP 125/61
[2022-06-12] MEDS: PRAVASTATIN 20 MG TAB PO SCH (10:35)
[2022-06-12] MEDS ORDERED: VENTAER INH (10:43)
== END 2022-06-12 11:40 | disposition home or self-care (01) ==
LOC: EDBD 17:39 → M ED 17:39 → M ED INP 17:40 → INTOOBSV 06-11 00:51 → M ED INP 06-11 00:51 → UNDOADMIN 06-11 00:51 → ENRESERV 06-11 16:20 → UNDOADMOB 06-11 17:40 → M MSPAV 06-11 17:56 → M ED INP 06-11 17:56 → M MSPAV 06-11 17:56 → M ED INP 06-11 17:56 → UNDODISOB 06-12 11:40
PROVIDERS: ADMIT Internal Medicine; ATTEND Internal Medicine
DX: R51.9 Headache, unspecified (principal); I16.0 Hypertensive urgency; I10 Essential (primary) hypertension; K21.9 Gastro-esophageal reflux disease without esophagitis; R26.9 Unspecified abnormalities of gait and mobility; R53.81 Other malaise; E87.1 Hypo-osmolality and hyponatremia; Z79.82 Long term (current) use of aspirin; Z79.899 Other long term (current) drug therapy
CPT/HCPCS: 36415; 70450; 70496; 70498; 70544; 70551; 71045; 71260; 76775; 80047; 80048; 80076; 82088; 82550; 82553; 82570; 83690; 83880; 83930; 83935; 84244; 84300; 84439; 84443; 85025; 85610; 85652; 85730; 86850; 86900; 86901; 87631; 93005; 93041; 93975; 94760; 96365; 96366; 96372; 96375; 97110; 97161; 97530; 99285; J0456; J2405

== ENCOUNTER → 2022-07-13 | Outpatient (CLI) | payer OTHER ==
[~2022-07-13] MED LIST changes: +AMLO1TAB25 PO; +ASPI81TA26 PO; +AZIT-12 PO; +ERGO500029 PO; +LISI10TA22 PO; +LISI20TA33 PO; +PANT40TA29 PO; +PRAV40TA2 PO; +SELF1KIT MC; +VENTAER INH
[2022-07-13 12:24] LABS: HEMATOCRIT 38.4 % (36.0-47.0); HEMOGLOBIN 13.3 g/dl (12.0-15.5); MEAN CORPUSCULAR HGB CONC 34.6 g/dl (32.0-36.5); MEAN CORPUSCULAR VOLUME 83.7 fl (80.0-96.0); PLATELET COUNT, AUTOMATED 217 10^3/uL (150-450); RED BLOOD COUNT 4.59 10^6/uL (4.00-5.40); WHITE BLOOD COUNT 5.1 10^3/uL (4.0-10.0)
[2022-07-13 12:36] LABS: HEMOGLOBIN A1c 5.9 % (4.0-6.0)
[2022-07-13 12:44] LABS: ALKALINE PHOSPHATASE 77 U/L (46-116); ALT/SGPT 22 U/L (7.0-40); AST/SGOT 20 U/L (<34); BILIRUBIN,TOTAL 0.5 MG/DL (0.3-1.2); BLOOD UREA NITROGEN 12 MG/DL (9-23); CALCIUM LEVEL 9.5 MG/DL (8.3-10.6); CARBON DIOXIDE LEVEL 24 MMOL/L (20-31); CHLORIDE LEVEL 100 MMOL/L (98-107); CHOLESTEROL LEVEL 169 MG/DL (<200); CHOLESTEROL RISK RATIO 4.22 (<5); CREATININE FOR GFR 0.76 MG/DL (0.55-1.30); GLOMERULAR FILTRATION RATE > 60.0 (>39); GLUCOSE, FASTING 110 MG/DL (74-106); LDL CHOLESTEROL 98.4 MG/DL (<100); NON-HDL-C 129 MG/DL; POTASSIUM SERUM 4.4 MMOL/L (3.5-5.1); SODIUM LEVEL 132 MMOL/L (136-145); TOTAL PROTEIN 6.9 G/DL (5.7-8.2); TRIGLYCERIDES LEVEL 153 MG/DL (<150)
[2022-07-13 12:47] LABS: THYROID STIMULATING HORMONE 1.444 uIU/ML (0.55-4.78)
[2022-07-13 14:38] LABS: TOTAL 25(OH) VITAMIN D 76.2 NG/ML (20.0-100.0)
== END ==
LOC: M RAD 11:15
PROVIDERS: ATTEND Family Medicine
DX: R53.83 Other fatigue (principal); I10 Essential (primary) hypertension; E03.9 Hypothyroidism, unspecified

== ENCOUNTER → 2023-02-22 | Outpatient (CLI) | payer OTHER ==
[2023-02-22 12:16] LABS: HEMATOCRIT 39.2 % (36.0-47.0); HEMOGLOBIN 13.7 g/dl (12.0-15.5); MEAN CORPUSCULAR HEMOGLOBIN 29.2 pg (27.0-33.0); MEAN CORPUSCULAR HGB CONC 34.9 g/dl (32.0-36.5); MEAN CORPUSCULAR VOLUME 83.6 fl (80.0-96.0); PLATELET COUNT, AUTOMATED 259 10^3/uL (150-450); RED BLOOD COUNT 4.69 10^6/uL (4.00-5.40); WHITE BLOOD COUNT 8.5 10^3/uL (4.0-10.0)
[2023-02-22 12:42] LABS: ALKALINE PHOSPHATASE 96 U/L (46-116); ALT/SGPT 21 U/L (7.0-40); AST/SGOT < 8 U/L (<34); BILIRUBIN,TOTAL 0.7 MG/DL (0.3-1.2); BLOOD UREA NITROGEN 23 MG/DL (9-23); CALCIUM LEVEL 9.7 MG/DL (8.3-10.6); CARBON DIOXIDE LEVEL 28 MMOL/L (20-31); CHLORIDE LEVEL 100 MMOL/L (98-107); CREATININE FOR GFR 1.03 MG/DL (0.55-1.30); GLOMERULAR FILTRATION RATE 55.8 (>39); GLUCOSE, FASTING 94 MG/DL (74-106); HEMOGLOBIN A1c 6.9 % (4.0-6.0); POTASSIUM SERUM 3.8 MMOL/L (3.5-5.1); SODIUM LEVEL 135 MMOL/L (136-145); TOTAL PROTEIN 7.2 G/DL (5.7-8.2)
[2023-02-22 12:44] LABS: THYROID STIMULATING HORMONE 3.002 uIU/ML (0.55-4.78)
== END ==
LOC: M RAD 11:02
PROVIDERS: ATTEND Family Medicine
DX: D64.9 Anemia, unspecified (principal); E03.9 Hypothyroidism, unspecified; I10 Essential (primary) hypertension

== ENCOUNTER → 2023-11-27 | Outpatient (CLI) | payer OTHER ==
[2023-11-27 12:08] LABS: HEMATOCRIT 38.5 % (36.0-47.0); HEMOGLOBIN 13.1 g/dl (12.0-15.5); MEAN CORPUSCULAR VOLUME 85.2 fl (80.0-96.0); PLATELET COUNT, AUTOMATED 229 10^3/uL (150-450); RED BLOOD COUNT 4.52 10^6/uL (4.00-5.40); WHITE BLOOD COUNT 6.8 10^3/uL (4.0-10.0)
[2023-11-27 12:44] LABS: THYROID STIMULATING HORMONE 1.498 uIU/ML (0.55-4.78)
[2023-11-27 12:45] LABS: TOTAL 25(OH) VITAMIN D 71.5 NG/ML (20.0-100.0)
[2023-11-27 12:47] LABS: IRON (FE) 54 UG/DL (50-170); PERCENT SATURATION 14.4 % (13.2-45.0); TOTAL IRON BINDING CAPACITY 374 UG/DL (250-425); VITAMIN B12 LEVEL 623 PG/ML (211-911)
[2023-11-27 12:48] LABS: ALBUMIN 3.8 G/DL (3.2-5.2); ALKALINE PHOSPHATASE 80 U/L (46-116); ALT/SGPT 22 U/L (7.0-40); AST/SGOT 15 U/L (<34); BILIRUBIN,TOTAL 0.5 MG/DL (0.3-1.2); BLOOD UREA NITROGEN 17 MG/DL (9-23); CALCIUM LEVEL 9.7 MG/DL (8.3-10.6); CARBON DIOXIDE LEVEL 26 MMOL/L (20-31); CHLORIDE LEVEL 103 MMOL/L (98-107); CHOLESTEROL LEVEL 197 MG/DL (<200); CHOLESTEROL RISK RATIO 5.48 (<5); CREATININE FOR GFR 0.93 MG/DL (0.55-1.30); GLOMERULAR FILTRATION RATE > 60.0 (>39); GLUCOSE, FASTING 111 MG/DL (74-106); HDL CHOLESTEROL 35.9 MG/DL (>40); LDL CHOLESTEROL 103.7 MG/DL (<100); NON-HDL-C 161.1 MG/DL; POTASSIUM SERUM 4.1 MMOL/L (3.5-5.1); SODIUM LEVEL 136 MMOL/L (136-145); TOTAL PROTEIN 6.9 G/DL (5.7-8.2); TRIGLYCERIDES LEVEL 287 MG/DL (<150)
[2023-11-27 12:51] LABS: HEMOGLOBIN A1c 6.6 % (4.0-6.0)
== END ==
LOC: M LAB 10:42
PROVIDERS: ATTEND Family Medicine
DX: E03.9 Hypothyroidism, unspecified (principal); D64.9 Anemia, unspecified; R53.83 Other fatigue

== ENCOUNTER → 2023-12-03 | Outpatient (CLI) | payer OTHER | LOC: M RAD 13:44 | PROVIDERS: ATTEND Family Medicine | DX: M54.30 Sciatica, unspecified side (principal); M25.551 Pain in right hip; M25.552 Pain in left hip ==

== ENCOUNTER → 2024-04-22 | Outpatient (CLI) | payer OTHER | LOC: M PLAIMG 04-16 14:58 | PROVIDERS: ATTEND Pain Medicine Interventional Pain Medicine | DX: M54.16 Radiculopathy, lumbar region (principal); M48.061 Spinal stenosis, lumbar region without neurogenic claudication ==

== ENCOUNTER 2024-05-23 15:00 | Outpatient (RCR) | payer OTHER | END 2024-05-31 | LOC: M PT 15:00 | PROVIDERS: ATTEND Physician Assistant | DX: M54.50 Low back pain, unspecified (principal) ==

== ENCOUNTER 2024-06-13 15:00 | Outpatient (RCR) | payer OTHER | END 2024-07-01 | LOC: M PT 15:00 | PROVIDERS: ATTEND Physician Assistant | DX: M54.50 Low back pain, unspecified (principal) ==

== ENCOUNTER 2024-07-30 14:15 | Outpatient (RCR) | payer OTHER | END 2024-08-01 | LOC: M PT 14:15 | PROVIDERS: ATTEND Physician Assistant | DX: M54.50 Low back pain, unspecified (principal) ==

== ENCOUNTER → 2024-10-17 | Outpatient (CLI) | payer OTHER ==
[2024-10-17 11:30] LABS: HEMATOCRIT 35.5 % (36.0-47.0); HEMOGLOBIN 12.1 g/dl (12.0-15.5); MEAN CORPUSCULAR HEMOGLOBIN 28.9 pg (27.0-33.0); MEAN CORPUSCULAR HGB CONC 34.1 g/dl (32.0-36.5); MEAN CORPUSCULAR VOLUME 84.9 fl (80.0-96.0); PLATELET COUNT, AUTOMATED 229 10^3/uL (150-450); RED BLOOD COUNT 4.18 10^6/uL (4.00-5.40); WHITE BLOOD COUNT 6.3 10^3/uL (4.0-10.0)
[2024-10-17 11:51] LABS: ALBUMIN 3.8 G/DL (3.2-5.2); BILIRUBIN,TOTAL 0.5 MG/DL (0.3-1.2); CALCIUM LEVEL 9.5 MG/DL (8.3-10.6); CHOLESTEROL RISK RATIO 4.61 (<5); CREATININE FOR GFR 1.01 MG/DL (0.55-1.30); GLOMERULAR FILTRATION RATE 58.1 (>39); HDL CHOLESTEROL 38.8 MG/DL (>40); LDL CHOLESTEROL 82.2 MG/DL (<100); NON-HDL-C 140.2 MG/DL; POTASSIUM SERUM 4.5 MMOL/L (3.5-5.1); TOTAL PROTEIN 6.8 G/DL (5.7-8.2)
[2024-10-17 11:52] LABS: TOTAL 25(OH) VITAMIN D 69.6 NG/ML (20.0-100.0)
[2024-10-17 11:53] LABS: THYROID STIMULATING HORMONE 1.43 uIU/ML (0.55-4.78)
[2024-10-17 12:31] LABS: HEMOGLOBIN A1c 6.8 % (4.0-6.0)
== END ==
LOC: M LAB 09:50
PROVIDERS: ATTEND Family Medicine
DX: I10 Essential (primary) hypertension (principal); D64.9 Anemia, unspecified; R53.83 Other fatigue

== ENCOUNTER 2025-04-08 08:27 | Day surgery (SDC) | payer OTHER ==
[~2025-04-08] VITALS: Ht 160 cm; Wt 70.7 kg
[~2025-04-08 08:27] MED LIST changes: +AMLO1TAB24 PO; +FAMO40TA3 PO; +IRBE300T12 PO; -PRAV40TA2 PO; +PRAV40TA85 PO
[2025-04-08] MEDS ORDERED: LIDOCAINE 2% 100 MG/5 ML SDV (FOR ANES.) As Ordered ONE (09:54)
[2025-04-08 10:08] VITALS: TEMP 97.8
[2025-04-08 10:24] VITALS: BP 161/73; O2SAT 100
== END 2025-04-08 10:34 | disposition home or self-care (01) ==
LOC: M OPP 08:27
PROVIDERS: ATTEND Internal Medicine Gastroenterology
DX: R10.13 Epigastric pain (principal); Z79.899 Other long term (current) drug therapy